=== PATIENT | male | born 2000 | race Caucasian/White ===

== ENCOUNTER 2022-09-05 14:47 | Outpatient (CLI) | payer OTHER | END 2022-09-05 14:48 | disposition home or self-care (01) | LOC: TBSIIMAG 14:47 | PROVIDERS: ATTEND Orthopaedic Surgery | DX: S59.901A Unspecified injury of right elbow, initial encounter (principal); S53.31XA Traumatic rupture of right ulnar collateral ligament, initial encounter ==